=== PATIENT | female | born 1990 | race African-American/Black ===

== ENCOUNTER 2018-05-23 14:16 | Emergency (ER) | payer MEDICAID ==
[~2018-05-23] VITALS: Ht 170.2 cm; Wt 76.0 kg
[2018-05-23] MEDS ORDERED: SODIUM CHLORIDE 0.9% 1,000 ML IV ONE (22:45)
[2018-05-23] MEDS ORDERED: KETOROLAC 30MG/ML VIAL IV STA (22:45)
[2018-05-23 23:12] LABS: CLARITY URINE CLEAR (CLEAR); COLOR URINE YELLOW (YELLOW); KETONES URINE NEGATIVE (NEGATIVE); LEUKOCYTE ESTERASE URINE 1+ (NEGATIVE); NITRITE URINE NEGATIVE (NEGATIVE); OCCULT BLOOD URINE NEGATIVE (NEGATIVE); PH URINE 5.5 (4.5-8.0); PROTEIN URINE NEGATIVE (NEGATIVE); UROBILINOGEN URINE 0.2 E.U./dL (0.2-1.0)
[2018-05-23 23:20] LABS: *BARBITURATES SCREEN URINE NEGATIVE (NEGATIVE); CANNABINOID URINE SCREEN NEGATIVE (NEGATIVE)
[2018-05-23 23:21] LABS: *AMPHETAMINES SCREEN URINE NEGATIVE (NEGATIVE); *BENZODIAZEPINES SCREEN URINE NEGATIVE (NEGATIVE); *COCAINE SCREEN URINE NEGATIVE (NEGATIVE); METHADONE URINE SCREEN NEGATIVE (NEGATIVE); OPIATES URINE SCREEN NEGATIVE (NEGATIVE)
[2018-05-23 23:22] LABS: PHENCYCLIDINE URINE SCREEN NEGATIVE (NEGATIVE)
[2018-05-23] MEDS ORDERED: CEFTRIAXONE 1 G PREMIX 50 ML IV NR (23:45)
[2018-05-23 23:51] LABS: BASOPHILS % 0.6 % (0.0-2.0); EOSINOPHILS % 1.4 % (0.0-5.0); HEMATOCRIT. 32.1 % (36.0-48.0); HEMOGLOBIN. 10.7 g/dL (12.0-16.0); LYMPHOCYTES % 33.7 % (20.0-50.0); MEAN CORPUSCULAR HEMOGLOBIN 33.1 pg (28.0-32.0); MEAN CORPUSCULAR VOLUME 99.2 fL (81.0-99.0); MONOCYTES % 7.9 % (2.0-8.0); NEUTROPHILS % 56.4 % (40.0-76.0); PLATELET 253 x1000/uL (130-400); RED BLOOD CELL COUNT 3.24 mill/uL (4.2-5.4); RED CELL DISTRIBUTION WIDTH 13.1 % (11.6-14.6)
[2018-05-23 23:59] LABS: INR 0.9; PROTHROMBIN TIME 9.5 sec (9.1-11.1)
[2018-05-24] LABS: CHLORIDE 106 mEq/L (98-107)
[2018-05-24 00:01] LABS: ETHANOL BLOOD < 10 mg/dL
[2018-05-24 00:02] LABS: HCG SCREEN NEGATIVE
[2018-05-24 02:20] VITALS: BP 117/68
== END 2018-05-24 02:31 | disposition home or self-care (01) ==
LOC: ER 14:23
DX: N30.00 Acute cystitis without hematuria (principal); D53.9 Nutritional anemia, unspecified; N80.9 Endometriosis, unspecified; F31.9 Bipolar disorder, unspecified; J45.909 Unspecified asthma, uncomplicated
CPT/HCPCS: 36415; 80053; 80305; 80320; 81003; 81025; 83605; 83690; 84703; 85025; 85610; 96361; 96365; 96375; 99283; J0696; J1885; J7030; Z7610; G0480

== ENCOUNTER 2018-06-14 07:31 | Emergency (ER) | payer MEDICAID ==
[~2018-06-14] VITALS: Ht 165.1 cm; Wt 68.0 kg
[2018-06-14 07:33] VITALS: BP 137/84
[2018-06-14] MEDS ORDERED: ONDANSETRON 4MG ODT PO ONE (08:30)
[2018-06-14] MEDS ORDERED: ACETAMINOPHEN 500MG TABLET PO ONE (08:30)
== END 2018-06-14 09:12 | disposition home or self-care (01) ==
LOC: ER 07:31
DX: R07.0 Pain in throat (principal); M54.5 Low back pain; M54.2 Cervicalgia; M79.10 Myalgia, unspecified site; J45.909 Unspecified asthma, uncomplicated; F31.9 Bipolar disorder, unspecified; Z88.0 Allergy status to penicillin
CPT/HCPCS: 99283; Q0162; Z7610

== ENCOUNTER 2018-06-16 01:13 | Emergency (ER) | payer MEDICAID ==
[~2018-06-16] VITALS: Ht 165.1 cm; Wt 73.0 kg
[2018-06-16] MEDS ORDERED: IBUPROFEN 600MG TABLET PO ONE (04:30)
[2018-06-16 04:51] VITALS: BP 133/93
== END 2018-06-16 04:51 | disposition home or self-care (01) ==
LOC: ER 01:13
DX: J06.9 Acute upper respiratory infection, unspecified (principal); J45.909 Unspecified asthma, uncomplicated; F31.9 Bipolar disorder, unspecified
CPT/HCPCS: 99282

== ENCOUNTER 2018-06-20 20:47 | Emergency (ER) | payer MEDICAID ==
[~2018-06-20] VITALS: Ht 165.1 cm; Wt 75.0 kg
[2018-06-20] MEDS ORDERED: KETOROLAC 30MG/ML VIAL IV STA (22:25)
[2018-06-20 22:36] LABS: CHLORIDE 104 mEq/L (98-107)
[2018-06-20 22:39] LABS: BASOPHILS % 0.8 % (0.0-2.0); EOSINOPHILS % 1.2 % (0.0-5.0); HEMATOCRIT. 38.7 % (36.0-48.0); HEMOGLOBIN. 12.9 g/dL (12.0-16.0); LYMPHOCYTES % 28.5 % (20.0-50.0); MEAN CORPUSCULAR HEMOGLOBIN 32.7 pg (28.0-32.0); MEAN CORPUSCULAR VOLUME 98.2 fL (81.0-99.0); MEAN PLATELET VOLUME 7.1 fl (7.4-10.4); NEUTROPHILS % 60.5 % (40.0-76.0); PLATELET 329 x1000/uL (130-400); RED BLOOD CELL COUNT 3.94 mill/uL (4.2-5.4)
[2018-06-21 01:00] VITALS: BP 146/92
== END 2018-06-21 01:50 | disposition home or self-care (01) ==
LOC: ER 20:47
DX: N83.202 Unspecified ovarian cyst, left side (principal); J45.909 Unspecified asthma, uncomplicated; F17.210 Nicotine dependence, cigarettes, uncomplicated; Z88.0 Allergy status to penicillin
CPT/HCPCS: 36415; 76856; 80053; 83690; 85025; 96374; 99284; J1885

== ENCOUNTER 2018-07-04 05:19 | Emergency (ER) | payer MEDICAID ==
[~2018-07-04] VITALS: Ht 165.1 cm; Wt 70.0 kg
[2018-07-04 07:10] VITALS: BP 120/79
[2018-07-04] MEDS ORDERED: TRAMADOL 50MG TABLET PO ONE (07:15)
== END 2018-07-04 07:26 | disposition home or self-care (01) ==
LOC: ER 05:19
DX: K04.7 Periapical abscess without sinus (principal); F17.200 Nicotine dependence, unspecified, uncomplicated; Z88.0 Allergy status to penicillin
CPT/HCPCS: 99283